=== PATIENT | male | born 1995 | race Caucasian/White ===

== ENCOUNTER 2025-01-17 13:36 | Emergency (ER) | payer OTHER ==
[~2025-01-17] VITALS: Ht 188 cm; Wt 111.6 kg
[2025-01-17 14:05] VITALS: TEMP 98.5
[2025-01-17] MEDS ORDERED: ONDANSETRON 4 MG TAB.RAPDIS ONE (14:41)
[2025-01-17] MEDS ORDERED: ACETAMINOPHEN ES 500 MG TABLET ONE (14:41)
[2025-01-17] MEDS ORDERED: KETOROLAC TROMETHAMINE 15 MG/ML VIAL ONE (14:41)
[2025-01-17] MEDS: KETOROLAC TROMETHAMINE 15 MG/ML VIAL IV ONE (14:45)
[2025-01-17] MEDS: ACETAMINOPHEN ES 500 MG TABLET PO ONE (14:45)
[2025-01-17] MEDS: ONDANSETRON 4 MG TAB.RAPDIS SL ONE (14:50)
[2025-01-17 15:04] LABS: PLATELET COUNT (AUTO) 235 K/uL (150-450); RED BLOOD CELL COUNT(AUTO) 5.29 MIL/uL (4.5-6.0); RED CELL DISTRIBUTION WIDTH 13.3 % (11.5-15.0); WHITE BLOOD COUNT (AUTO) 7.6 K/uL (4.3-11.0)
[2025-01-17 15:10] LABS: CALCIUM, SERUM 9.7 mg/dL (8.5-10.1); CREATININE 1.1 mg/dL (0.6-1.3); SODIUM SERUM 141 mmol/L (136-145); UREA NITROGEN, BLOOD 10 mg/dL (7-18)
[2025-01-17 16:44] VITALS: BP 122/75; O2SAT 97
== END 2025-01-17 16:42 | disposition home or self-care (01) ==
LOC: ER 13:52
DX: R07.89 Other chest pain (principal); G43.909 Migraine, unspecified, not intractable, without status migrainosus; F17.200 Nicotine dependence, unspecified, uncomplicated; F32.A Depression, unspecified; G47.30 Sleep apnea, unspecified; Z88.8 Allergy status to other drugs, medicaments and biological substances
CPT/HCPCS: 99285; 96374; 71045; 93005 ×2; 85025; 80048; 36415; 84484; J1885; Q0162